=== PATIENT | female | born 1955 | race African-American/Black ===

== ENCOUNTER 2016-11-28 12:53 | Outpatient (CLI) | payer BC, OTHER ==
[~2016-11-28 12:53] MED LIST: FERRIC CARBOXYMALTOSE 750 MG in NORMAL SALINE 250 ML IV PRN; NORMAL SALINE 250 ML IV PRN
[2016-11-28 13:39] VITALS: BP 150/74
== END 2016-11-28 14:32 | disposition home or self-care (01) ==
LOC: II 12:53 → 5TH 13:09 → II 14:32
PROVIDERS: ATTEND Internal Medicine
PROC: 3E043GC Introduction of Other Therapeutic Substance into Central Vein, Percutaneous Approach (ICD-10-PCS; principal; 2016-11-28)
DX: D50.8 Other iron deficiency anemias (principal); K90.9 Intestinal malabsorption, unspecified
CPT/HCPCS: 96367; J7050; J1439; 96365

== ENCOUNTER 2016-12-05 12:33 | Outpatient (CLI) | payer OTHER ==
[2016-12-05 12:48] VITALS: BP 139/64
== END 2016-12-05 13:26 | disposition home or self-care (01) ==
LOC: II 12:33 → 5TH 12:34 → II 13:26
PROVIDERS: ATTEND Internal Medicine
PROC: 3E033GC Introduction of Other Therapeutic Substance into Peripheral Vein, Percutaneous Approach (ICD-10-PCS; principal; 2016-12-05)
DX: D50.8 Other iron deficiency anemias (principal); K90.9 Intestinal malabsorption, unspecified
CPT/HCPCS: 96367; J7050; J1439; 96374